=== PATIENT | male | born 1960 ===

== ENCOUNTER → 2017-04-08 | Outpatient (REF) | LOC: ZLAB.WCH 18:36 | DX: Z01.89 Encounter for other specified special examinations (principal) | CPT/HCPCS: G0103 ==

== ENCOUNTER → 2018-04-16 | Outpatient (REF) | LOC: ZLAB.WCH 15:58 | DX: Z01.89 Encounter for other specified special examinations (principal) | CPT/HCPCS: G0103 ==

== ENCOUNTER → 2020-01-27 | Outpatient (CLI) | payer BC | LOC: ZCOL.LAB 03:28 | DX: H60.501 Unspecified acute noninfective otitis externa, right ear (principal) ==